=== PATIENT | male | born 1975 | race Caucasian/White ===

== ENCOUNTER 2018-03-22 11:00 | Outpatient (CLI) | payer OTHER ==
--- NOTE | 2018-03-23 09:53 | CT ---
CT CHEST: History: Pulmonary nodule. Comparison: Chest radiograph, 03-12-18. FINDINGS: Contrast enhanced CT of the chest demonstrates an approximately 12 mm soft tissue lesion in the right lower lobe laterally. The Hounsfield measurements are between 120 to 130, suggesting some calcificat ions. This is suggestive of a granuloma, possibly in its earlier stages without obvious gross calcifi cations. A second small pulmonary nodule is also seen in the inferior most aspect of the left upper lobe in th e region of the lingula on axial image 48 and coronal image 56. This lesion is too small to further c haracterize. No other pulmonary parenchymal lesions seen. Some hepatic steatosis is noted. It may be worthwhile to consider a follow up CT of the chest in approximately 6 months to evaluate fo r interval change. IMPRESSION: 1. Small approximately 6 mm lingular lobe pulmonary nodule. 2. Right lower lobe approximately 12 mm well circumscribed nodule which is increased in Hounsfield me asurements. 3. No evidence of mediastinal or hilar lymphadenopathy seen. POS: [facility]
== END 2018-03-22 11:01 | disposition home or self-care (01) ==
LOC: SCSCT 11:00
PROVIDERS: ATTEND Family Medicine
DX: R91.1 Solitary pulmonary nodule (principal); R91.8 Other nonspecific abnormal finding of lung field
CPT/HCPCS: 71260